=== PATIENT | male | born 1940 | race Caucasian/White ===

== ENCOUNTER → 2016-12-05 | Outpatient (CLI) | payer MEDICARE ==
[~2016-12-05] MED LIST: ALPRAZOLAM0.5 MG PO; IMDUR ER TAB 3030 MG PO; NEURONTIN800 MG PO; NORCO 10-325 T1 EACH PO; NORVASC 5 MG TAB5 MG PO
== END ==
LOC: CT 07:34
DX: R91.8 Other nonspecific abnormal finding of lung field (principal); R59.0 Localized enlarged lymph nodes
CPT/HCPCS: 36415; 71260; 82565; 84520; J7050; Q9965

== ENCOUNTER → 2016-12-21 | Outpatient (CLI) | payer MEDICARE | LOC: KOH-I 08:03 | DX: M54.5 Low back pain (principal); M51.35 Other intervertebral disc degeneration, thoracolumbar region; M51.36 Other intervertebral disc degeneration, lumbar region | CPT/HCPCS: 72148 ==

== ENCOUNTER → 2017-01-03 | Outpatient (CLI) | payer MEDICARE | LOC: LAB 12:51 | DX: R91.1 Solitary pulmonary nodule (principal); R06.02 Shortness of breath; F17.210 Nicotine dependence, cigarettes, uncomplicated; R94.2 Abnormal results of pulmonary function studies | CPT/HCPCS: 36415; 36600; 82565; 82803; 84520; 94010; 94729 ==

== ENCOUNTER → 2017-01-04 | Outpatient (CLI) | payer MEDICARE | LOC: NM 01-01 11:30 | DX: R91.1 Solitary pulmonary nodule (principal); R94.2 Abnormal results of pulmonary function studies; R41.3 Other amnesia; J90 Pleural effusion, not elsewhere classified | CPT/HCPCS: 70470; 78580; A9540; J7050; Q9966 ==

== ENCOUNTER → 2017-01-05 | Outpatient (CLI) | payer MEDICARE | LOC: NM 08:50 → HEART 5 01-18 08:00 | DX: R94.31 Abnormal electrocardiogram [ECG] [EKG] (principal); R91.8 Other nonspecific abnormal finding of lung field; Z01.810 Encounter for preprocedural cardiovascular examination; R06.02 Shortness of breath; Z72.0 Tobacco use; I34.0 Nonrheumatic mitral (valve) insufficiency | CPT/HCPCS: ECHO; 78452; 93017; 93306; A9502; J2785 ==

== ENCOUNTER → 2017-01-09 | Outpatient (CLI) | payer MEDICARE ==
[2017-01-09 17:02] LABS: HEMOGLOBIN 13.8 gm/dl (14.0-17.5); RED BLOOD COUNT 4.54 M/UL (4.20-5.50); WHITE BLOOD COUNT 7.2 K/UL (4.5-11.0)
[2017-01-09 17:22] LABS: BUN/CREATININE RATIO 21 (0-10)
== END ==
LOC: LAB 15:24
PROVIDERS: Internal Medicine Cardiovascular Disease
DX: Z01.818 Encounter for other preprocedural examination (principal); R00.1 Bradycardia, unspecified; I51.7 Cardiomegaly; R94.31 Abnormal electrocardiogram [ECG] [EKG]
CPT/HCPCS: 36415; 80048; 85025; 85610; 85730; 93005

== ENCOUNTER → 2017-01-10 | Outpatient (CLI) | payer MEDICARE ==
[~2017-01-10] VITALS: Ht 182.9 cm; Wt 84.5 kg
== END | disposition home or self-care (01) ==
LOC: CATH 06:29
DX: I25.118 Atherosclerotic heart disease of native coronary artery with other forms of angina pectoris (principal); R94.39 Abnormal result of other cardiovascular function study; C34.91 Malignant neoplasm of unspecified part of right bronchus or lung; Z01.810 Encounter for preprocedural cardiovascular examination; J44.9 Chronic obstructive pulmonary disease, unspecified; F17.200 Nicotine dependence, unspecified, uncomplicated; I71.4 Abdominal aortic aneurysm, without rupture; Z88.2 Allergy status to sulfonamides; Z79.891 Long term (current) use of opiate analgesic; Z79.899 Other long term (current) drug therapy
CPT/HCPCS: C1769; C1894; J0461; J0583; J1644; J2250; J3010; J7030; Q0163; Q9963